=== PATIENT | female | born 1990 | race Caucasian/White ===

== ENCOUNTER 2019-01-06 16:53 | Emergency (ER) | payer MEDICAID ==
[~2019-01-06] VITALS: Ht 157.5 cm; Wt 48.5 kg
--- NOTE | 2019-01-06 17:00 | NUR ---
Dr Bloom at the bedside for MSE.
[2019-01-06] MEDS ORDERED: SERT50TA PO (17:09)
[2019-01-06] MEDS ORDERED: LORA-258 PO (17:09)
--- NOTE | 2019-01-06 17:22 | NUR ---
Provided pt w/ fluids, no c/o nausea/vomiting. Urine collected and sent to Lab.
[2019-01-06 17:27] LABS: BASOPHILS # (AUTO) 0.1 K/uL (0.0-8.0); BASOPHILS % (AUTO) 1.1 % (0.0-2.0); CARBON DIOXIDE 27 mmol/L (21-32); CHLORIDE 102 mmol/L (98-107); CREATININE 0.8 mg/dL (0.6-1.3); EOSINOPHILS # (AUTO) 0.4 K/uL (0.0-0.7); GLUCOSE 79 mg/dL (74-106); HEMATOCRIT 36.7 % (31.2-41.9); HEMOGLOBIN 12.2 g/dL (10.9-14.3); LYMPHOCYTES # (AUTO) 2.7 K/uL (20.0-40.0); LYMPHOCYTES % (AUTO) 28.5 % (20.5-51.5); MEAN CORPUSCULAR HEMOGLOBIN 26.6 uug (24.7-32.8); MEAN CORPUSCULAR HGB CONC 33 g/dL (32.3-35.6); MEAN CORPUSCULAR VOLUME 80.1 fL (75.5-95.3); MONOCYTES # (AUTO) 0.7 K/uL (2.0-10.0); MONOCYTES % (AUTO) 7.8 % (0.0-11.0); NEUTROPHILS # (AUTO) 5.5 K/uL (1.8-8.9); NEUTROPHILS % (AUTO) 58.6 % (38.5-71.5); PLATELET COUNT (AUTO) 270 K/uL (179-408); POTASSIUM 3.7 mmol/L (3.5-5.1); RED BLOOD CELL COUNT(AUTO) 4.59 MIL/uL (3.63-4.92); UREA NITROGEN, BLOOD 8 mg/dL (7-18); WHITE BLOOD COUNT (AUTO) 9.5 K/uL (3.8-11.8)
[2019-01-06 17:32] LABS: ALANINE AMINOTRANSFERASE 20 U/L (14-59); ALKALINE PHOSPHATASE 81 U/L (50-136); ASPARTATE AMINOTRANSFERASE 18 U/L (15-37); BILIRUBIN,DIRECT 0.1 mg/dL (0.0-0.2); BILIRUBIN,TOTAL 0.3 mg/dL (0.2-1.0); TOTAL PROTEIN, SERUM 7.2 g/dL (6.4-8.2)
[2019-01-06 17:34] LABS: ACETAMINOPHEN < 2.0 ug/mL (10-30)
[2019-01-06 17:35] LABS: ETHANOL < 3 MG/DL (0-0)
[2019-01-06 17:41] LABS: *BILIRUBIN,URIN NEGATIVE (NEGATIVE); *BLOOD, URINE 2+ (NEGATIVE); *CLARITY,URINE CLEAR (CLEAR); *KETONES,URINE NEGATIVE (NEGATIVE); *UROBILINOGEN,URINE 0.2 E.U./dl (NORMAL); LEUKOCYTE ESTERASE ,URINE NEGATIVE (NEGATIVE); NITRITE, URINE NEGATIVE (NEGATIVE); PH,URINE 5.5 (5.0-8.0); UGLUCOSE NEGATIVE (NEGATIVE)
[2019-01-06 17:55] LABS: *COLOR,URINE LIGHT YELLOW (YELLOW)
[2019-01-06 17:56] LABS: SQUAMOUS EPITHELIAL CELL,UR FEW /HPF (NONE SEEN); WBC,URINE 0-3 /HPF (0-3)
[2019-01-06 18:01] LABS: *AMPHETAMINE, URINE NEGATIVE (NEGATIVE); *BARBITURATE, URINE NEGATIVE (NEGATIVE); *CANNABINOID, URINE POSITIVE (NEGATIVE); *COCCAINE, URINE POSITIVE (NEGATIVE); *OPIATE, URINE NEGATIVE (NEGATIVE); *PHENCYCLIDINE SCREEN,URINE NEGATIVE (NEGATIVE)
--- NOTE | 2019-01-06 18:20 | NUR ---
Jensen NAVAW from [facility] notified for Psych eval.
--- NOTE | 2019-01-06 18:27 | NUR ---
Patient is resting comfortably in bed with eyes closed, NAD noted. Boyfriend at the bedside.
[2019-01-06 18:36] LABS: *URINE HCG, QUAL POSITIVE (NEGATIVE)
--- NOTE | 2019-01-06 18:36 | NUR ---
Jensen Carbajal from [facility] at the bedside for psych eval.
--- NOTE | 2019-01-06 19:56 | NUR ---
Patient has been discharged per Dr. Harmon. Per her boyfriend he stated that she needs to be admitted but due to her insurance will have to pay out of pocket. Boyfriend stated, "I will just call law enforcement to come and put her on a hold so that she can be at the right hospital". Spoke to Jensen Carbajal, and he advised to call Art for maybe another re-evaluation. 1999 Art was called and stated he will consult with Jensen. Awaiting call back.
--- NOTE | 2019-01-06 20:35 | NUR ---
Patient discharged to home in stable conditon. Written and verbal after care instructions given. Patient verbalizes understanding of instructions. Gave patient information for [facility] for follow up care.
[2019-01-06 20:38] VITALS: BP 100/59
--- NOTE | 2019-01-06 20:51 | NUR ---
KWAME came in to ask the name of the personnel who evaluated the patient. Name given.
== END 2019-01-06 20:39 | disposition home or self-care (01) ==
LOC: ER 16:54
DX: Z04.6 Encounter for general psychiatric examination, requested by authority (principal); F32.9 Major depressive disorder, single episode, unspecified; R45.851 Suicidal ideations; Z88.0 Allergy status to penicillin; Z79.899 Other long term (current) drug therapy
CPT/HCPCS: 36415; 71045; 80048; 80076; 80307; 81001; 84703; 85025; 93005; 99284; G0480 ×2; G0481; A4663

== ENCOUNTER 2019-01-06 21:42 | Emergency (ER) | payer MEDICAID ==
[~2019-01-06] VITALS: Ht 157.5 cm; Wt 48.5 kg
[~2019-01-06 21:42] MED LIST: LORA-258 PO; SERT50TA PO
--- NOTE | 2019-01-06 22:01 | NUR ---
Per Freelance Director, there are not available sitters at this time. She stated she will update us if anyone becomes available.
--- NOTE | 2019-01-06 22:24 | NUR ---
Art from crisis team at bedside for eval.
--- NOTE | 2019-01-06 22:51 | NUR ---
Patient discharged to home in stable conditon. Written and verbal after care instructions given. Patient verbalizes understanding of instructions. Patient ambulated with stable gait.
== END 2019-01-06 22:54 | disposition home or self-care (01) ==
LOC: ER 21:44
DX: F32.9 Major depressive disorder, single episode, unspecified (principal); R45.851 Suicidal ideations; Z88.0 Allergy status to penicillin; Z79.899 Other long term (current) drug therapy